=== PATIENT | male | born 1980 | race African-American/Black ===

== ENCOUNTER 2018-12-17 19:41 | Emergency (ER) | payer MEDICAID, OTHER ==
[~2018-12-17] VITALS: Ht 190.5 cm; Wt 93.1 kg
[~2018-12-17 19:41] MED LIST: DIPH-186 PO; HYDR1TAB PO
[2018-12-17] MEDS ORDERED: METH-360 PO (20:36)
[2018-12-17 20:38] VITALS: BP 139/87
[2018-12-17] MEDS ORDERED: acetaminophen 325mg tablet PO ONE (20:40)
== END 2018-12-17 20:57 | disposition home or self-care (01) ==
LOC: ER 19:41
DX: R07.89 Other chest pain (principal); M62.838 Other muscle spasm; Z79.899 Other long term (current) drug therapy
CPT/HCPCS: 71045; 93005; 99283